=== PATIENT | female | born 1960 | race Native Hawaiian/Other Pacific Islander ===

== ENCOUNTER 2018-10-10 09:42 | Emergency (ER) | payer OTHER, BC ==
[2018-10-10 09:48] VITALS: BMI 25.4
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
[2018-10-10 11:06] VITALS: BP 138/78; PULSE 71; RESP 18; TEMP 98; O2SAT 99
--- NOTE | 2018-10-10 13:59 | RAD ---
Date of service: 10/10/2018 PROCEDURE: Radiographs of the left elbow. HISTORY: trauma COMPARISON: No prior. FINDINGS: BONES: Normal. No fracture. JOINTS: Normal. No osteoarthritis. SOFT TISSUES: Normal. JOINT EFFUSION: None. OTHER FINDINGS: None IMPRESSION: Unremarkable radiographs of the left elbow.
== END 2018-10-10 11:00 | disposition home or self-care (01) ==
LOC: H.ER 09:42
DX: S50.02XA Contusion of left elbow, initial encounter (principal); W03.XXXA Other fall on same level due to collision with another person, initial encounter; I10 Essential (primary) hypertension; Z79.82 Long term (current) use of aspirin; E78.00 Pure hypercholesterolemia, unspecified